=== PATIENT | male | born 1985 | race Caucasian/White ===

== ENCOUNTER 2024-09-11 19:57 | Emergency (ER) | payer MEDICAID, OTHER ==
[~2024-09-11] VITALS: Ht 185.4 cm; Wt 70.1 kg
--- NOTE | 2024-09-11 20:04 | Physician Documentation ---
History of Present Illness ~ Stated Complaint: BUG BITE Time Seen by MD: 20:41 OK to notify your PCP?: Yes Primary Medical Doctor: NONE Source: patient Mode of Arrival: POV Exam Limitations: no limitations HPI 39-year-old male presents with possible bug bite to left inner thigh with spreading redness since yesterday. He reports marking it with a marker and the redness has spread outside of the marked line. Reports that it is warm and p ainful but not itchy. Medication Reconciliation Allergies: Uncoded Allergies: CANTELOPE (Allergy, Unknown, 09/11/24) Past Medical History Past Medical History: No Pertinent History Past Surgical History: orthopedic surgeries Alcohol Use: None Drug Use: none Review of Systems All Other Systems at this time: Reviewed and Negative Physical Exam Vital Signs: RN Vital Signs have been reviewed: Yes Pulse Oximetry Reflects: adequate oxygenation Physical Exam General: Alert, no distress, well-appearing. HEENT: No injection, moist mucous membranes. Neck: Full range of motion. Respiratory: No respiratory distress, equal chest rise and fall. Chest: No accessory muscle use. Cardiovascular: Regular rate and rhythm. Gastrointestinal: Nondistended. Extremities: Normal range of motion, no deformity. Neurologic: Oriented x4. Psychiatric: Normal mood and affect. Skin: Large area of erythema and warmth to left inner thigh with small puncture wound consistent with insect bite/sting. Progress Results/Orders Results/Orders Vital Signs 09/11/24 20:03 Temp 98.2 Pulse 87 Resp 16 B/P (MAP) 112/77 Pulse Ox 98 O2 Flow Rate 0 Medical Decision Making Findings 39-year-old male presents with erythema and warmth to left inner thigh and hard puncture yasir consistent with an insect bite. Vital signs are stable and he is well-appearing. He self marked his leg with a marker and the redness has grown outside of the line the redness is approximately 15 cm x 20 cm but soft. We gave 1st dose of Keflex and Tylenol in the department and sent a prescription to pharmacy for Keflex. He should follow up with his primary care provider in the next 3 days and return back here for any new or worsening symptoms. Departure Disposition: 01 HOME / SELF CARE / HOMELESS Impression: Primary Impression: Cellulitis Condition: Stable Discharge Instructions: Cellulitis, Adult, [id number] Additional Instructions: Please take all antibiotics as prescribed and finish the full course. Follow up with her primary care provider in the next 3 days and return back here for any new or worsening symptoms. Referrals: NO PRIMARY CARE PROVIDER (PCP) Prescriptions Cephalexin*Monohydrate* (Keflex*) 500 Mg Capsule 1 CAP PO Q6H for 10 Days, #40 CAP Prov: AURE GARCÍA 09/11/24 Education Educated: Patient Educated regarding: diagnosis, treatment, prognosis, need for follow up Additional Comment Medical Screen Exam This patient recieved a medical screening examination. After reviewing the individual's medical complaints with presenting symptoms and performing an appropriate physical examination, it was determined that no immediate life- threatening emergency medical condition is present. This individual is also not a women having contractions. Signature Scribe Signature: . Attestation: Scribed for Aure García by Aure Guzman NP . 09/11/24 20:49 Parts of this note were created using [employer] voice recognition software program. While efforts were made to correct any mistakes made by this voice recognition software program, nonsensical phrases may remain in this note. In addition, there may be errors and syntax, grammar, content and spelling. AURE GACRÍA Sep 11, 2024 20:04
[2024-09-11] MEDS ORDERED: CEPH-585 PO (20:46)
[2024-09-11] MEDS: cephalexin 250mg capsule PO ONE (21:19)
[2024-09-11] MEDS: acetaminophen 325mg tablet PO ONE (21:20)
[2024-09-11 21:23] VITALS: BP 114/72; PULSE 86; RESP 18; TEMP 98.6; O2SAT 99
== END 2024-09-11 21:25 | disposition home or self-care (01) ==
LOC: ER 19:57
DX: L03.115 Cellulitis of right lower limb (principal)
CPT/HCPCS: 99283